=== PATIENT | male | born 1975 | race Caucasian/White ===

== ENCOUNTER 2017-10-03 10:45 | Emergency (ER) | payer MEDICAID ==
--- NOTE | 2017-10-03 10:41 | EDPHY ---
HPI/HX/ROS/PE/MDM Narrative: CHIEF COMPLAINT: Left-sided weakness secondary to falling, FTA HPI: The patient is a 42 y/o male with a history of lumbar back injury arriving via EMS as a Full Trauma Alert in a c-collar after slipping and falling on to the ground at work. He is unsure if he hit his head or lost consciousness. Upon trying to stand up with the assistance of a co-worker, he had a popping sensation in his back. He then had decreased sensation and strength on his left side. Per EMS, the patient has decreased sensation of his right leg up to the calf and his left leg up to the knee. He also had decreased left manager employee benefits strength. Denies headache, chest pain, abdominal pain, urinary or bowel complaints, fever. REVIEW OF SYSTEMS: Aside from elements discussed in the HPI, a comprehensive 10-point review of systems was reviewed and is negative. PMH: Lumbar back injury, AR, and hernia SOCIAL HISTORY: at bedside, employed, smoker PHYSICAL EXAM: General: Patient is alert, in no acute distress. ENT: Eyes are normal to inspection. ENT inspection normal. Neck: Normal inspection. Full range of motion. Respiratory: No respiratory distress. Breath sounds normal bilaterally. Cardiovascular: Regular rate and rhythm. Strong peripheral pulses. Normal cap refill. Chest: Left-sided rib pain Abdomen: The abdomen is nontender to palpation. There are no peritoneal signs. There are normal bowel sounds. Back: L4 tenderness. Skin: Normal color. No rash. Warm and dry. Extremities: Normal appearance. Decreased range of motion of left extremities. Neuro: Oriented x3. No manager employee benefits strength on the left, unable to move left toes, decreased sensation to left lower extremity. ED Course: 1045: I met EMS upon arrival. Dr. Huynh (trauma surgeon), respiratory therapy, imaging, and laboratory are in room. 1110: Patient has returned from CT. 1120: Consulted with Dr. Huynh, who reports that the patient's CT's are negative. Brain, cervical, and lumbar spine MRI ordered. 30mg IV Toradol given for pain. 1244: Spoke with radiologist who reports that patient's brain MRI is normal. 1343: Spoke with radiologist who reports that the patients C-spine and L-spine MRI reveal no acute findings. 1425: Consulted with Dr. Huynh regarding patient. 1451: Dr. Huynh reports that patient is safe to return home. His left-sided weakness and numbness have improved. I have advised him to follow up with a neurosurgeon regarding his back pain. Return precautions provided; patient is comfortable with this plan. Critical care time spent by me, Dr. Mandel, exclusively with this patient was 60 minutes, exclusive of PA time and exclusive of procedures. The organ system at risk was neurovascular and I gave IVF, IV Toradol, and had imaging studies preformed to prevent worsening of the patients condition. MDM: This patient arrived as a full trauma activation secondary to fall with reported paralysis of lower body. The patient recovered normal motor function while in the ED and an extensive workup including CT and MRI which was requested by the trauma surgeon, is negative. Dr. Huynh recommends discharge home. - Data Points Imaging Results: Imaging Impressions Abdomen CT 10/03/17 10:50 Impression: Normal CT scan of the abdomen and pelvis for patient's age. Findings are reviewed with Dr. Demario Huynh at 11:[address] 10/03/17 10:50 Impression: No fracture or evidence of ligamentous injury. Findings are reviewed with Dr. Demario Huynh at 11:[address] 10/03/17 10:50 Impression: Nothing acute. Normal CT scan of the chest. Findings were reviewed with Dr. Demario Huynh at 11:[address] 10/03/17 10:50 Impression: Normal. Findings are reviewed with Dr. Huynh at 11:[address] 10/03/17 10:51 Impression: Nothing acute. Degenerative facet disease at L5-S1 bilaterally. Findings are reviewed with Dr. Demario Huynh at 11:[address] 10/03/17 10:51 Impression: Nothing acute in the thoracic spine. Findings are reviewed with Dr. Demario Huynh at 11:15 a.m. Brain MRI 10/03/17 11:21 Impression: 1. Normal MRI of the brain without contrast. If symptoms worsen, additional imaging may be necessary. Findings discussed with Rory Mandel MD at 12:44 hour, 10/03/2017. Cervical Spine MRI 10/03/17 11:21 Impression: 1. Features of degenerative disk disease at C5-C6, without discrete disk prolapse or neural impingement. 2. No evidence of acute cervical cord injury or abnormal bone marrow edema within the cervical spine to suggest acute fracture. Lumbar Spine MRI 10/03/17 11:21 Impression: 1. Minimal disk bulge without consequences at L3-L4. 2. No acute abnormality seen about the lumbar spine. Findings discussed with Rory Mandel MD at 13:43 hour, 10/03/2017. Imaging: Discussed imaging studies w/ callisthenics instructor Radiologist, I viewed and interpreted images myself Laboratory Results: Laboratory Results 10/03/17 10:40 10/03/17 10:40 10/03/17 10/03/17 10/03/17 10:54 10:54 10:40 WBC RBC Hgb POC Hgb 15.0 gm/dL gm/dL (13.7-17.5) Hct POC Hct 44 % % (40-51) MCV MCH MCHC RDW Plt Count MPV Neut % (Auto) Lymph % (Auto) [place] % (Auto) Eos % (Auto) Baso % (Auto) Nucleat RBC Rel Count Absolute Neuts (auto) Absolute Lymphs (auto) Absolute Monos (auto) Absolute Eos (auto) Absolute Basos (auto) Absolute Nucleated RBC Immature Gran % Immature Gran # VBG Lactic Acid 2.1 mmol/L mmol/L (0.7-2.1) POC Sodium 143 mEq/L mEq/L (135-145) Sodium 145 mEq/L mEq/L (135-145) POC Potassium 3.9 mEq/L mEq/L (3.3-5.0) Potassium 4.4 mEq/L mEq/L (3.3-5.0) POC Chloride 107 mEq/L mEq/L (97-110) Chloride 109 mEq/L mEq/L (97-110) Carbon Dioxide 22 mEq/l mEq/l (22-31) Anion Gap 14 mEq/L mEq/L (8-16) POC BUN 7 mg/dL mg/dL (7-23) BUN 9 mg/dL mg/dL (7-23) Creatinine 0.9 mg/dL mg/dL (0.7-1.3) POC Creatinine 1.1 mg/dL mg/dL (0.7-1.3) Estimated GFR > 60 Glucose 95 mg/dL mg/dL (70-100) POC Glucose 103 mg/dL H mg/dL (70-100) Calcium 9.6 mg/dL mg/dL (8.5-10.4) Ethyl Alcohol 155 mg/dL H mg/dL (0-10) 10/03/ 10:40 WBC 6.78 10^3/uL 10^3/uL (3.80-9.50) RBC 5.07 10^6/uL 10^6/uL (4.40-6.38) Hgb 15.8 g/dL g/dL (13.7-17.5) POC Hgb Hct 45.1 % % (40.0-51.0) POC Hct MCV 89.0 fL fL (81.5-99.8) MCH 31.2 pg pg (27.9-34.1) MCHC 35.0 g/dL g/dL (32.4-36.7) RDW 12.9 % % (11.5-15.2) Plt Count 291 10^3/uL 10^3/uL (150-400) MPV 9.0 fL fL (8.7-11.7) Neut % (Auto) 39.5 % % (39.3-74.2) Lymph % (Auto) 49.1 % H % (15.0-45.0) [place] % (Auto) 8.6 % % (4.5-13.0) Eos % (Auto) 1.8 % % (0.6-7.6) Baso % (Auto) 0.9 % % (0.3-1.7) Nucleat RBC Rel Count 0.0 % % (0.0-0.2) Absolute Neuts (auto) 2.68 10^3/uL 10^3/uL (1.70-6.50) Absolute Lymphs (auto) 3.33 10^3/uL H 10^3/uL (1.00-3.00) Absolute Monos (auto) 0.58 10^3/uL 10^3/uL (0.30-0.80) Absolute Eos (auto) 0.12 10^3/uL 10^3/uL (0.03-0.40) Absolute Basos (auto) 0.06 10^3/uL 10^3/uL (0.02-0.10) Absolute Nucleated RBC 0.00 10^3/uL 10^3/uL (0-0.01) Immature Gran % 0.1 % % (0.0-1.1) Immature Gran # 0.01 10^3/uL 10^3/uL (0.00-0.10) VBG Lactic Acid POC Sodium Sodium POC Potassium Potassium POC Chloride Chloride Carbon Dioxide Anion Gap POC BUN BUN Creatinine POC Creatinine Estimated GFR Glucose POC Glucose Calcium Ethyl Alcohol Medications Given: Discontinued Medications Ketorolac Tromethamine (Toradol) 30 mg IVP EDNOW ONE Stop: 10/03/17 11:23 Last Admin: 10/03/17 11:23 Dose: 30 mg Point of Care Test Results: 10/03/17 10:54 POC Sodium 143 POC Potassium 3.9 POC Chloride 107 POC BUN 7 POC Creatinine 1.1 POC Glucose 103 H General Time Seen by Provider: 10/03/17 10:45 Initial Vital Signs: Initial Vital Signs Temperature (C) 36.8 C 10/03/17 10:45 Heart Rate 99 10/03/17 10:45 Respiratory Rate 16 10/03/17 10:45 Blood Pressure 137/98 H 10/03/17 10:45 O2 Sat (%) 98 10/03/17 10:45 O2 Delivery Mode Room Air Allergies/Adverse Reactions: No Known Allergies Allergy (Unverified 10/03/17 11:39) Home Medications: Medication Instructions Recorded NK [No Known Home Meds] 10/03/17 Departure - Departure Disposition: Home, Routine, Self-Care Clinical Impression: Back pain Condition: Good Instructions: Acute Low Back Pain (ED), Lower Back Exercises (ED) Additional Instructions: Followup with a aquatics specialist within one week. Return to the emergency department for severe pain, fever, numbness, difficulty walking, change in location or nature of pain or other concerns. Use ibuprofen and Tylenol as directed. Try using a heating pad. Referrals: Michelle Irvin DO [Doctor of Osteopathy] - As per Instructions Report Scribed for: Rory Mandel Report Scribed by: Talya Walker Date of Report: 10/03/17 Time of Report: 10:41 Physician Review and Approval Statement: Portions of this note were transcribed by an ED scribe. I personally performed the history, physical exam, and medical decision making; and confirm the accuracy of the information in the transcribed note.
[2017-10-03 11:02] LABS: PLATELET COUNT 291 10^3/uL (150-400)
[2017-10-03] MEDS ORDERED: KETOROLAC 30 MG/1 ML SDV IVP ONE (11:22)
[2017-10-03 14:52] VITALS: BP 148/78
--- NOTE | 2017-10-03 15:49 | GCON ---
[f rep st] CONSULTATION TRAUMA CONSULT. FINAL DIAGNOSIS: No identifiable issues. HISTORY: The patient is a 42-year-old white male who apparently slipped on paper, landing on the floor. One of his buddies went to help him up. He reported that he "heard a pop" and all of a sudden could not move his left hand and left leg. He was brought to [facility] by EMS. He had not been placed on a backboard. His C-collar was in place. His airway was clear and unencumbered as manifested by normal phonation and conversation. His breath sounds were equal bilaterally. There was no obvious bleeding. A focused history reveals that he has no known drug allergies. He does not currently take any medications. He does admit to prior orthopedic injuries and has been evaluated for lumbar issues. PHYSICAL EXAMINATION: VITAL SIGNS: His initial vital signs show a blood pressure of 137/98, heart rate 99, respirations 16, temperature 36.8, pulse ox 98. GENERAL: He is awake and alert and complaining. HEENT: skull which was normocephalic and atraumatic. His pupils are 3 mm and reactive. Extraocular movements are intact. There is no evidence of head injury. There are no raccoon eyes. There is no David sign. He has normal dental occlusion. His scalp was palpably normal. NECK: His C-collar is in place. It was removed with light traction placed, and the neck was palpated. It is not tender. Nonetheless, he was placed back in a C-collar. EXTREMITIES: His right upper extremity is unremarkable. His left upper extremity, he has a distinctly diminished left wrinkle chaser. CHEST: Stable to AP and lateral compression. ABDOMEN: Soft and nontender. MUSCULOSKELETAL: When moved from the gurney to the bed, he did flex his left hip and bend his knee. He subsequently reports inability to move his hip or knee. He states he has decreased sensation on the left medial thigh and left medial lower leg. When distracted, he seems to have normal reflexes. His Perry coma Scale was 15 on admission. His right upper extremity is unremarkable. Left upper extremity has the intermittent weakness as noted. He was taken to CAT scan. When in CAT scan, he tells us the fentanyl does not work for him. Note is made that his breath had a smell of alcohol on it. His laboratories revealed an anion gap acidosis. Subsequently, the alcohol level was determined to be 157. He has received Toradol for pain. CAT scan of his head, neck, chest , abdomen and pelvis, lumbar spine, and thoracic spine are all negative. An MRI of the head, neck, and lumbar spine is all negative. On re-examination, he is moving all extremities. Sensation is normal. IMPRESSION: Factitious presentation. Note is made that secondary information according to his friends at work is that he has had similar incidents in the past as a drug-seeking behavior. I can find no legitimate explanation for his presentation. Certainly, he is stable at this point for discharge. Narcotics will not be administered in his home-going medications. I have suggested he take a Tylenol 1000 mg every 8 hours. I would suggest that he take Motrin 200 mg every 6 hours. He does smoke a pack a day, and I have asked him not to smoke anymore as it will impair healing. A long discussion was carried out regarding his alcohol use and abuse. Information was given as to how much he could expect his alcohol level to rise with each drink and how much it falls with hour of abstinence. At this point, he is 4 hours post admission, so his blood alcohol still should be 80. We had a discussion of his driving while intoxicated this morning. This discussion was held in the presence of his . /[id number]/MODL MTDD
== END 2017-10-03 14:59 | disposition home or self-care (01) ==
LOC: EDUNIT#
DX: S39.92XA Unspecified injury of lower back, initial encounter (principal); I25.2 Old myocardial infarction; W17.89XA Other fall from one level to another, initial encounter; Y92.69 Other specified industrial and construction area as the place of occurrence of the external cause; Y99.0 Civilian activity done for income or pay; Y93.89 Activity, other specified
CPT/HCPCS: 82947-QW; 96374; G0480